=== PATIENT | male | born 1995 | race African-American/Black ===

== ENCOUNTER 2018-11-06 21:54 | Emergency (ER) | payer BC ==
[~2018-11-06] VITALS: Wt 134.5 kg
[2018-11-07] MEDS ORDERED: AL HYDROX/MG HYDROX/SIMETH 30 ML CUP PO ONE (01:30)
--- NOTE | 2018-11-07 02:26 | ERD ---
ER Documentation Chief Complaint Chief Complaint EPIGASTRIC PAIN, NOW DESCRIBES A TIGHTNESS SENSATION BEHIND STERNUM HPI This is a 23-year-old male who presents to the emergency room for evaluation of abdominal pain. The patient localizes the abdominal pain to the midportion of his abdomen and states it is an achy pain sometimes worse with eating. The patient states that his pain is been present on and off for the past 2 weeks however got worse tonight. The patient denies any relieving factors at this time and does state that he previously had taken antacids which helped however nothing is helped today. The patient denies any vomiting associated with this and denies any fever or chills ROS All systems reviewed and are negative except as per history of present illness. PMhx/Soc Medical and Surgical Hx: pt denies Surgical Hx History of Surgery: No Anesthesia Reaction: No Hx Neurological Disorder: No Hx Respiratory Disorders: Yes (asthma) Hx Cardiac Disorders: No Hx Psychiatric Problems: No Hx Miscellaneous Medical Probl: No Hx Alcohol Use: No Hx Substance Use: Yes (marijuana) Hx Tobacco Use: No Smoking Status: Current every day smoker Physical Exam Vitals Vital Signs Date Temp Pulse Resp B/P (MAP) Pulse Ox O2 O2 Flow FiO2 Time Delivery Rate 11/06/18 98.1 67 18 127/79 97 22:00 (95) Physical Exam INITIAL VITAL SIGNS: Reviewed by me GENERAL: The patient is well developed and appropriate for usual state of health in no apparent distress HEENT: Pupils equal, round, and reactive to light. EOMI. There is no scleral icterus. NECK: C-spine is soft and supple, there is no meningismus. There is no cervical lymphadenopathy. LUNGS: Clear to auscultation bilaterally. There are no rales, wheezes or rhonchi. HEART: Regular rate and rhythm, no murmurs, clicks, rubs or gallops. ABDOMEN: Soft, non-tender, non-distended. There are bowel sounds in all four quadrants. No rebound or guarding. EXTREMITIES: There is no peripheral cyanosis or edema. No focal swelling or erythema. NEUROLOGICAL: The patient moves all four extremities with 5/5 strength. Cranial nerves II - XII are intact. Normal gait. Alert and oriented SKIN: There is no apparent rash or petechiae. HEME/LYMPHATIC: There is no evidence of excessive bruising or lymphedema. PSYCHIATRIC: The patient does not appear anxious or depressed. Result Diagram: 11/07/1813011/07/18 013 Results 24 hrs Laboratory Tests Test 11/07/18 01:31 11/07/18 01:32 White Blood Count 5.4 10^3/ul Red Blood Count 5.15 10^6/ul Hemoglobin 15.1 g/dl Hematocrit 44.8 % Mean Corpuscular Volume 87.0 fl Mean Corpuscular Hemoglobin 29.3 pg Mean Corpuscular Hemoglobin Concent 33.7 g/dl Red Cell Distribution Width 12.3 % Platelet Count 258 10^3/UL Mean Platelet Volume 9.9 fl Immature Granulocytes % 0.200 % Neutrophils % 50.4 % Lymphocytes % 36.2 % Monocytes % 9.3 % Eosinophils % 3.2 % Basophils % 0.7 % Nucleated Red Blood Cells % 0.0 /100WBC Immature Granulocytes # 0.010 10^3/ul Neutrophils # 2.7 10^3/ul Lymphocytes # 2.0 10^3/ul Monocytes # 0.5 10^3/ul Eosinophils # 0.2 10^3/ul Basophils # 0.0 10^3/ul Nucleated Red Blood Cells # 0.0 10^3/ul Sodium Level 140 mmol/L Potassium Level 3.9 mmol/L Chloride Level 101 mmol/L Carbon Dioxide Level 27 mmol/L Anion Gap 12 Blood Urea Nitrogen 10 mg/dl Creatinine 1.11 mg/dl Est Glomerular Filtrat Rate mL/min > 60 mL/min Glucose Level 90 mg/dl Calcium Level 9.7 mg/dl Total Bilirubin 0.2 mg/dl Direct Bilirubin 0.00 mg/dl Indirect Bilirubin 0.2 mg/dl Aspartate Amino Transf (AST/SGOT) 39 IU/L Alanine Aminotransferase (ALT/SGPT) 29 IU/L Alkaline Phosphatase 91 IU/L Total Protein 8.6 g/dl Albumin 4.8 g/dl Globulin 3.80 g/dl Albumin/Globulin Ratio 1.26 Lipase 35 U/L Urine Color YELLOW Urine Clarity CLEAR Urine pH 7.0 Urine Specific [place] 1.014 Urine Ketones NEGATIVE mg/dL Urine Nitrite NEGATIVE mg/dL Urine Bilirubin NEGATIVE mg/dL Urine Urobilinogen NEGATIVE mg/dL Urine Leukocyte Esterase NEGATIVE Aneudy/ul Urine Hemoglobin NEGATIVE mg/dL Urine Glucose NEGATIVE mg/dL Urine Total Protein NEGATIVE mg/dl Current Medications Medications Dose Sig/Azyra Start Time Status Last (Trade) Ordered Route PRN Stop Time Admin Dose Reason Admin Al 60 ml ONCE ONCE 11/07/18 DC 11/07/18 Hydrox/Mg PO 01:30 02:05 Hydrox/Simeth 11/07/18 01:31 icone (Mag-Al Plus) Procedures/MDM Chest X-ray 1V Interpreted by me: Soft Tissue: No acute abnormalities Bones: No acute abnormalities Mediastinum/Cardiac Silhouette/Lungs: [No acute abnormalities] X-ray Abdomen 1V Interpreted by me: Free Air: [None] Bowel Gas: [Nonspecific] Soft Tissue: [Normal] This 23-year-old male presents to the emergency room for evaluation of abdominal pain. On my exam the patient had no reproducible tenderness. The patient's symptoms do sound like he has GERD versus gastritis. This patient's x-ray of the chest and KUB are normal. Lab work is normal at this time with no elevation in his LFTs or pancreatic enzymes. Patient will be discharged home with a prescription for simethicone, and Zantac. He was given strict return precautions. Differential diagnoses entertained was broad with potential high acuity. Patient has been evaluated for appendicitis, cholecystitis, and other high risk medical and surgical causes of abdominal pain. Ultimately the patient's evaluation is nondiagnostic. Based on the patient's lack of risk factors, as well as the patient's clinical, laboratory, and imaging data, the patient appears to be low risk for these high risk causes of abdominal pain. Departure Diagnosis: Primary Impression: Epigastric pain Additional Impression: Gastritis Condition: SRIDHAR Andres DO Nov 07, 2018 02:26
[2018-11-07] MEDS ORDERED: RANI150T35 PO (02:30)
[2018-11-07] MEDS ORDERED: SIME180C4 PO (02:30)
[2018-11-07 03:05] VITALS: BP 134/84; PULSE 64; RESP 20
== END 2018-11-07 03:07 | disposition home or self-care (01) ==
LOC: E/R 21:54
DX: K29.70 Gastritis, unspecified, without bleeding (principal); J45.909 Unspecified asthma, uncomplicated; F17.210 Nicotine dependence, cigarettes, uncomplicated
CPT/HCPCS: 36415; 71045; 74018; 80053; 81003; 83690; 85025; 93005